=== PATIENT | male | born 1965 | race Caucasian/White ===

== ENCOUNTER 2019-05-31 10:02 | Inpatient (IN) ==
[2019-05-31] MEDS ORDERED: SODIUM CHLORIDE 0.9% 1000ML 1,000 ML IV ONE (10:28)
--- NOTE | 2019-05-31 10:29 | Emergency Department Note ---
Impression & Plan Bilateral pulmonary embolism, Hypertension, Embolism, pulmonary with infarction ED Provider Note NAME: DIA KRUGER AGE: 54 SEX: M : 1965 ARRIVES VIA: Walk-In INFORMANT: Patient ED PROVIDER(S): Stephan Cosby DO CHIEF COMPLAINT: Right mid abdomen pain HPI: Patient is a 54-year-old male who presents the ER for right mid to lower quadrant abdominal pain. This is been present since this past Monday. Came on gradually and has gradually worsened. He notes that it is focal to the right lower and may be radiates to the right mid abdomen. He denies any previous abdominal surgeries. No dysuria urgency or frequency. No hematuria. Last bowel movement was today and was unremarkable. He notes that twisting turning and bending breathing and bumps in the car do make it worse. Rest improves the pain. Does describe it as sharp as well. Denies any chest pain or shortness of breath. ROS: See above HPI for pertinent positives & negatives. A total of 10 systems reviewed and were otherwise negative. PAST MEDICAL HISTORY:none PAST SURGICAL HISTORY:none FAMILY HISTORY:See Below SOCIAL HISTORY:Denies smoking. Intermittent alcohol use HOME MEDICATIONS:See Below ALLERGIES:See Below VITALS:See Below PHYSICAL EXAMINATION: GENERAL: Sitting up in bed, alert, well appearing, well nourished, no distress, non-toxic EYE EXAM: normal conjunctiva. OROPHARYNX: no exudate, no erythema, lips, buccal mucosa, and tongue normal and mucous membranes are moist NECK: supple, no nuchal rigidity, no adenopathy, non-tender LUNGS: Clear to auscultation. Normal chest wall mechanics HEART: no murmurs, S1 normal and S2 normal ABDOMEN: abdomen soft, faint tenderness in right mid abdomen, normo-active bowel sounds, no masses, no rebound or guarding. BACK: Back is symmetrical on inspection and there is no deformity, no midline tenderness, no CVA tenderness. SKIN: no rashes and no bruising UPPER EXTREMITIES: upper extremities are grossly normal. LOWER EXTREMITIES: No pitting edema. NEURO EXAM: Normal sensorium, cranial nerves II-XII grossly intact, normal speech, no gross weakness of arms, no gross weakness of legs. MEDICAL DECISION MAKING: Patient is a 54-year-old male who presents the ER for right mid abdominal pain w hich is been present since this past Monday. Pain is worsened with twisting turning bending and breathing. Denies any chest pain or shortness of breath. No nausea vomiting or diarrhea. IV was established blood work was obtained. Labs show no significant leukocytosis or anemia. INR unremarkable. BMP with a slightly elevated chloride. LFTs bilirubin and troponin was negative. Lipase unremarkable. UA was negative. CT abdomen pelvis was performed and showed questionable bilateral PEs with pulmonary infarct. Duplex of lower extremities was then performed in order to refrain from performing a CT Duyen of the chest and giving him to dye loads. Duplex of lower extremities was negative. CT angios the chest was then performed to confirm the bilateral PEs. This showed bilateral PEs with pulmonary infarct. Patient was already given IV fluids. He denies any history of hemoptysis, hematemesis, hematuria, melena or bright red blood per rectum. No previous brain bleeds, recent trauma for recent surgeries. Discussed heparin drip and bolus. Patient was given a heparin drip and bolus. Discussed with the hospitalist. EKG was nondiagnostic. Patient was admitted for further work-up. Triage Nursing notes reviewed. Prior medical records reviewed Vital Signs: reviewed and remarkable for hypertension and tachycardia Differential diagnosis: Differential diagnoses includes but is not limited to gastritis, peptic ulcer disease, GERD, gallbladder disease, pancreatitis, small bowel obstruction, acute coronary syndrome, pericarditis, ischemic bowel, irritable bowel disease, irritable bowel syndrome, appendicitis, diverticulitis, malignancy, hernia, urinary tract infection, torsion, /ectopic (if female), p erforation, trauma, infectious. ER treatment provided: See below Diagnostics interpreted by me: ECG: Sinus rhythm rate 87 Poor baseline Normal axis No PVCs Normal QTC Questionable nonspecific ST wave changes in aVL Cardiac Monitoring: An order was placed for continuous cardiac monitoring. The monitor shows a rate of 98 with sinus rhythm. Laboratory studies: As stated above and show below. Imaging studies: Duplex of the lower extremities was unremarkable. CT abdomen pelvis concern for bilateral PEs with pulmonary infarct. CT Angio of the chest shows bilateral PEs with pulmonary infarct. Consultation(s): Discussed with Belia maxwell from the [facility] hospitalist team. ED COURSE: Procedures: None Critical Care: I have personally spent 35 minutes of critical care time in the direct management of this patient. This includes bedside care, interpretation of diagnostic studies, and testing, discussion with consultants, patient, and family members, and other required patient management activities. This 35 minutes is in excess of all separately billable procedures. Past Med/Surg History Medical History DM type 2 (diabetes mellitus, type 2) Dyslipidemia GERD (gastroesophageal reflux disease) Hypertension MARYLU on CPAP Surgical History No pertinent past surgical history Family History Father Pulmonary embolism Stroke Mother Breast cancer Social History Preferred Language: [place] [employer]icking [employer] Supervisor Required: No Beliefs That Will Affect Care: Uatsdin Uatsdin Beliefs: No blood products Current Living Situation: Spouse Other Information That Helps Us Care for You: No Feels Safe at Home: Yes Smoking Status: Never smoker Second Hand Exposure: Yes ; Hx Alcohol Use: Yes Alcohol type: beer and wine Alcohol Intake Frequency: Rarely Hx Substance Use: No Allergies Allergies Allergy/AdvReac Type Severity Reaction Status Date / Time No Known Allergies Allergy Unverified 05/31/19 11:11 Home Meds Home Medications Medication Instructions Recorded Confirmed aspirin 81 mg PO QAM 05/31/19 05/31/19 atorvastatin 40 mg PO QAM 05/31/19 05/31/19 cetirizine 10 mg PO DAILY PRN 05/31/19 05/31/19 losartan 50 mg PO QAM 05/31/19 05/31/19 metformin 500 mg PO QAM 05/31/19 05/31/19 omeprazole 20 mg PO QAM 05/31/19 05/31/19 Results & Data (ED) Vital Signs Vital Signs - 24 hr 05/31/19 10:08 05/31/19 11:28 05/31/19 13:24 Temperature 37.3 C Temperature Source Oral Pulse Rate 101 H Pulse Rate [Finger] 86 86 Respiratory Rate 20 17 17 Respiratory Effort / Characteristics Non-Labored Spontaneous Respiratory Depth Normal Respiratory Pattern Regular Blood Pressure 152/84 H Blood Pressure [Right Arm] 158/85 H 150/92 H Blood Pressure Mean 106 Blood Pressure Mean [Right Arm] 109 111 Pulse Oximetry 95 100 99 Oxygen Delivery Method Room Air Room Air Room Air Sepsis Recent Fever Within 48 Hours No Sepsis Action Taken by Nursing No Action Required Laboratory Data Result diagrams: 05/31/19 10:40 05/31/19 10:40 Lab Results 05/31/19 05/31/19 05/31/19 Range/Units 10:40 10:40 10:40 WBC 9.80 (4.8-10.8) K/uL RBC 5.06 (4.7-6.1) M/uL Hgb 13.9 L (14.0-18.0) g/dL Hct 42.1 (42-52) % MCV 83.2 (80-100) fL MCH 27.5 (25-34) pg MCHC 33.0 (32-36) g/dL RDW Std Deviation 40.4 (36.4-46.3) fL RDW Coeff of Dale 13.5 (11.5-14.5) % Plt Count 238 (130-400) K/uL MPV 8.8 (7.4-10.4) fL Immature Gran % (Auto) 0.1 % Neut % (Auto) 71.2 % Lymph % (Auto) 17.3 % [place] % (Auto) 8.6 % Eos % (Auto) 2.6 % Baso % (Auto) 0.2 % Immature Gran # (Auto) 0.01 (0.00-0.02) K/uL Neut # (Auto) 6.98 H (1.4-6.5) K/uL Lymph # (Auto) 1.70 (1.2-3.4) K/uL Berks # (Auto) 0.84 H (0.11-0.59) K/uL Eos # (Auto) 0.25 (0-0.5) K/uL Baso # (Auto) 0.02 (0-0.2) K/uL Sodium 137 (136-145) mmol/L Potassium 3.9 (3.5-5.1) mmol/L Chloride 108 H (98-107) mmol/L Carbon Dioxide 24 (21-32) mmol/L Anion Gap 5.0 (3-11) BUN 13 (7-18) mg/dl Creatinine 0.86 (0.6-1.4) mg/dl Est Cr Clr Drug Dosing 114.6 ml/min Est GFR ( Amer) 113.9 Est GFR (Non-Af Amer) 98.3 BUN/Creatinine Ratio 14.7 (10-20) Glucose 107 H (70-99) mg/dl Calcium 9.3 (8.5-10.1) mg/dl Total Bilirubin 0.4 (0.2-1) mg/dl AST 26 (15-37) U/L ALT 49 (12-78) U/L Alkaline Phosphatase 109 (45-117) U/L Troponin I (0-0.045) ng/ml Total Protein 8.1 (6.4-8.2) gm/dl Albumin 3.8 (3.4-5.0) gm/dl Globulin 4.3 H (2.5-4.0) gm/dl Albumin/Globulin Ratio 0.9 (0.9-2) Lipase 167 (73-393) U/L Urine Color Yellow Urine Appearance Clear (Clear) Urine pH 5.5 (4.5-7.5) Ur Specific [place] 1.018 (1.000-1.030) Urine Protein Negative (Negative) Urine Glucose (UA) Negative (Negative) Urine Ketones Negative (Negative) Urine Blood Negative (Negative) Urine Nitrite Negative (Negative) Urine Bilirubin Negative (Negative) Urine Urobilinogen Negative (Negative) Ur Leukocyte Esterase Negative (Negative) 05/31/19 Range/Units 10:40 WBC (4.8-10.8) K/uL RBC (4.7-6.1) M/uL Hgb (14.0-18.0) g/dL Hct (42-52) % MCV (80-100) fL MCH (25-34) pg MCHC (32-36) g/dL RDW Std Deviation (36.4-46.3) fL RDW Coeff of Dale (11.5-14.5) % Plt Count (130-400) K/uL MPV (7.4-10.4) fL Immature Gran % (Auto) % Neut % (Auto) % Lymph % (Auto) % [place] % (Auto) % Eos % (Auto) % Baso % (Auto) % Immature Gran # (Auto) (0.00-0.02) K/uL Neut # (Auto) (1.4-6.5) K/uL Lymph # (Auto) (1.2-3.4) K/uL [place] # (Auto) (0.11-0.59) K/uL Eos # (Auto) (0-0.5) K/uL Baso # (Auto) (0-0.2) K/uL Sodium (136-145) mmol/L Potassium (3.5-5.1) mmol/L Chloride (98-107) mmol/L Carbon Dioxide (21-32) mmol/L Anion Gap (3-11) BUN (7-18) mg/dl Creatinine (0.6-1.4) mg/dl Est Cr Clr Drug Dosing ml/min Est GFR ( Amer) Est GFR (Non-Af Amer) BUN/Creatinine Ratio (10-20) Glucose (70-99) mg/dl Calcium (8.5-10.1) mg/dl Total Bilirubin (0.2-1) mg/dl AST (15-37) U/L ALT (12-78) U/L Alkaline Phosphatase (45-117) U/L Troponin I < 0.015 (0-0.045) ng/ml Total Protein (6.4-8.2) gm/dl Albumin (3.4-5.0) gm/dl Globulin (2.5-4.0) gm/dl Albumin/Globulin Ratio (0.9-2) Lipase (73-393) U/L Urine Color Urine Appearance (Clear) Urine pH (4.5-7.5) Ur Specific [place] (1.000-1.030) Urine Protein (Negative) Urine Glucose (UA) (Negative) Urine Ketones (Negative) Urine Blood (Negative) Urine Nitrite (Negative) Urine Bilirubin (Negative) Urine Urobilinogen (Negative) Ur Leukocyte Esterase (Negative) Administered Medications Heparin Sodium/Dextrose (Heparin Sodium/Dextrose) 25,000 units in 500 mls @ 0.02 mls/hr IV .Q24H [facility]; Protocol Stop: 06/30/19 13:44 Last Admin: 05/31/19 15:35 Dose: 1,000 units/hr, 20 mls/hr Documented by: [id number] Cosigned by: [id number] Discontinued Medications Sodium Chloride (Nss 1000ml) 1,000 mls @ 999 mls/hr IV .Q1H1M ONE Stop: 05/31/19 11:28 Last Infusion: 05/31/19 11:48 Dose: 0 mls/hr Documented by: [id number] Admin: 05/31/19 10:41 Dose: 999 mls/hr Documented by: [id number] Ioversol (Optiray 320 100ml) 94 ml IV ONCE PRN PRN Reason: Interaction Checking Stop: 06/04/19 11:20 Last Admin: 05/31/19 11:22 Dose: 94 ml Documented by: [id number] Ioversol (Optiray 320 125ml) 95 ml IV ONCE PRN PRN Reason: Interaction Checking Stop: 06/04/19 13:23 Last Admin: 05/31/19 13:25 Dose: 95 ml Documented by: [id number] Morphine Sulfate (Morphine Sulfate) 4 mg IV NOW STA Stop: 05/31/19 13:26 Last Admin: 05/31/19 13:31 Dose: 4 mg Documented by: [id number] Ondansetron HCl (Zofran) 4 mg IV NOW STA Stop: 05/31/19 13:26 Last Admin: 05/31/19 13:31 Dose: 4 mg Documented by: [id number] Discharge Plan Visit Data *Final* Discharge Date/Time: 05/31/19 14:15 Chief Complaint: Abdominal Pain Stated Complaint: ABD PAIN, RLQ ED Provider: Stephan Cosby Discharge Problem: Bilateral pulmonary embolism, Hypertension, Embolism, pulmonary with infarction Patient Disposition: Admitted As Inpatient Discharge Instructions Interventions: ED Discharge Assessment Last Done: 05/31/19 14:15 Discharge Problem: Hypertension Qualifiers: Hypertension type: unspecified Qualified Code(s): I10 - Essential (primary) hypertension
[2019-05-31 10:47] LABS: Basophils # (auto) 0.02 K/uL (0-0.2); Basophils % (auto) 0.2 %; Eosinophils # (auto) 0.25 K/uL (0-0.5); Eosinophils % (auto) 2.6 %; Hematocrit (blood only) 42.1 % (42-52); Hemoglobin 13.9 g/dL (14.0-18.0); Immature Granulocytes # (auto) 0.01 K/uL (0.00-0.02); Immature Granulocytes % (auto) 0.1 %; Lymphocytes % (auto) 17.3 %; Mean Corpuscular Hemoglobin 27.5 pg (25-34); Mean Corpuscular Volume 83.2 fL (80-100); Mean Platelet Volume 8.8 fL (7.4-10.4); Monocytes # (auto) 0.84 K/uL (0.11-0.59); Monocytes % (auto) 8.6 %; Neutrophils # (auto) 6.98 K/uL (1.4-6.5); Neutrophils % (auto) 71.2 %; Platelet Count 238 K/uL (130-400); RDW Coefficient of Variation 13.5 % (11.5-14.5); RDW Standard Deviation 40.4 fL (36.4-46.3); Red Blood Count 5.06 M/uL (4.7-6.1)
--- NOTE | 2019-05-31 10:51 | XRay Report ---
XR chest 1V portable CLINICAL HISTORY: pain in abd with breathing COMPARISON STUDY: No previous studies for comparison. FINDINGS: Lung volumes are normal. Linear left lung opacities favor atelectasis or scarring. There is no pneumothorax or pleural effusion. Cardiac size is normal. Mediastinal contours are normal. There is no evidence for pulmonary edema. Old left-sided rib fractures are noted. IMPRESSION: No acute cardiopulmonary findings. ACT 112: Negative or not required by law. Electronically signed by: Boris Burnette M.D. 05/31/2019 10:50 AM
[2019-05-31 11:00] LABS: Appearance Urine Clear (Clear); Bilirubin Urine Negative (Negative); Blood Urine Negative (Negative); Color Urine Yellow; Glucose Urine UA Negative (Negative); Ketones Urine Negative (Negative); Leukocyte Esterase Urine Negative (Negative); Nitrite Urine Negative (Negative); Protein Urine Negative (Negative); Specific Gravity Urine 1.018 (1.000-1.030); Urobilinogen Urine Negative (Negative); pH Urine 5.5 (4.5-7.5)
[2019-05-31 11:05] LABS: Albumin Level 3.8 gm/dl (3.4-5.0); BUN Creatinine Ratio 14.7 (10-20); Calcium 9.3 mg/dl (8.5-10.1); Creatinine Clr Calc Pharmacy 114.6 ml/min; Est GFR (African American) 113.9; Est GFR (Non-African American) 98.3; Potassium 3.9 mmol/L (3.5-5.1)
[2019-05-31 11:08] LABS: Albumin Globulin Ratio 0.9 (0.9-2); Bilirubin,Total 0.4 mg/dl (0.2-1); Globulin 4.3 gm/dl (2.5-4.0); Total Protein 8.1 gm/dl (6.4-8.2)
[2019-05-31] MEDS ORDERED: IOVERSOL 100ml IV PRN (11:21)
--- NOTE | 2019-05-31 11:47 | CT Scan Report ---
CT OF THE ABDOMEN AND PELVIS WITH CONTRAST CLINICAL HISTORY: Right mid abdominal pain. COMPARISON STUDY: None. TECHNIQUE: Following IV administration of 94 mL of Optiray-320, axial images of the abdomen and pelvi s were obtained from the lung bases to the proximal femurs. Images were reviewed in the axial, sagitt al, and coronal planes. IV contrast was administered without complication. Automated exposure contro l was utilized for the study. A dose lowering technique was utilized adhering to the principles of A ANDREINA. CT DOSE: 733.26 mGy.cm FINDINGS: A trace right pleural effusion is noted. Linear bilateral lower lung opacities reflect atel ectasis. Ground glass opacity within the posterior basilar segment of the right lower lobe favors a p ulmonary infarct. There are probable bilateral lower lobe pulmonary emboli, larger on the right. No p neumatosis, free air or portal venous gas is present. There is no biliary or pancreatic ductal dilata tion. The spleen, adrenal glands, kidneys and pancreas are normal. A lipoma within the left lateral l ower chest wall is noted. There is no evidence for a bowel obstruction. The appendix is normal. Calib er and wall thickness of small and large bowel are normal. There is no lymphadenopathy or ascites. Th ere are no suspicious osseous lesions. IMPRESSION: 1. Probable bilateral lower lobe pulmonary emboli with a right lower lobe pulmonary infarct. A CT of the chest PE protocol is recommended for confirmation. 2. No acute process within the abdomen or pelvis. ACT 112: Negative or not required by law. Electronically signed by: Boris Burnette M.D. 05/31/2019 11:46 AM
--- NOTE | 2019-05-31 12:59 | Ultrasound Report ---
US venous doppler LE CLINICAL HISTORY: 54 years-old Male presenting with atypical chest pain, pleuritic pain, PEs. TECHNIQUE: Real-time grayscale and color and spectral Doppler ultrasound imaging of the veins of the bilateral lower extremities was performed. Compression and augmentation were also utilized. COMPARISON: None. FINDINGS: RIGHT: Common femoral vein: Patent. Greater saphenous vein (superficial): Patent. Deep femoral vein: Patent. Femoral vein: Patent. Popliteal vein: Patent. Calf veins: Patent. LEFT: Common femoral vein: Patent. Greater saphenous vein (superficial): Patent. Deep femoral vein: Patent. Femoral vein: Patent. Popliteal vein: Patent. Calf veins: Patent. Other: None. IMPRESSION: No evidence of deep venous thrombosis. ACT 112: Negative or not required by law. Electronically signed by: Gama Rolle M.D. 05/31/2019 12:58 PM
[2019-05-31] MEDS ORDERED: OPTIRAY 320 125ml IV PRN (13:24)
[2019-05-31] MEDS ORDERED: ONDANSETRON INJ 2 MG/ML 2 ML VIAL IV STA (13:25)
[2019-05-31] MEDS ORDERED: MoRPHine SULFATE 4 MG/ML 1 ML CARP\\VIAL IV STA (13:25)
--- NOTE | 2019-05-31 13:36 | CT Scan Report ---
CT angio chest PE protocol CLINICAL HISTORY: 54 years-old Male presenting with probable pulmonary emboli on CT of abdomen and pe lvis performed earlier the same day. TECHNIQUE: Multidetector CT angiography of the chest was performed after administration of intravenou s contrast. 3-D volumetric and/or maximum intensity projection (MIP) images were subsequently reconst ructed for review. IV contrast: 95 mL of Optiray 320. One or more dose lowering techniques were used consistent with the principles of ALARA (as low as reasonably achievable), including automatic exposu re control, mA or kV adjustment to individual patient size, and/or use of iterative reconstruction. COMPARISON: CT of abdomen and pelvis from earlier the same day. CT DOSE (mGy.cm): The estimated cumulative dose is 519.61 mGy.cm. 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 Pulmonary vasculature: The study is suboptimal for the assessment of the pulmonary vascular tree secondary to timing of the contrast bolus. Filling defects within segmental and subsegmental pulmonary emboli of the right lower lobe. More limited subsegmental filling defects consistent with pulmonary emboli in the left lower l obe and left upper lobe. No central pulmonary embolus. Main pulmonary artery is not enlarged. No flat tening of the interventricular septum. No intracardiac filling defect. No reflux of contrast into the hepatic veins. Remaining chest: Soft tissues: Normal thyroid and thoracic inlet. Gynecomastia. No axillary, supraclavicular, mediasti nal, or hilar lymphadenopathy. Normal aorta. Borderline enlargement of the heart. No pericardial or p leural effusion. Small sliding-type hiatal hernia. Lungs and airways: No pneumothorax. Central airways patent. Pulmonary arteries are not significantly enlarged relative to adjacent bronchi. No interlobular septal thickening. Extensive dependent bandlik e and subpleural consolidation with volume loss, likely atelectasis. Additionally, groundglass opacit ies in the posterior basal right lower lobe in a subpleural predominant distribution. Scattered calci fied granulomata. Musculoskeletal: Degenerative changes of the spine. IMPRESSION: 1. Segmental and subsegmental acute pulmonary emboli most prominently in the right lower lobe though also affecting the left upper and lower lobes. No CT evidence of right heart strain. 2. Groundglass infiltrate in the posterior basal right lower lobe raises concern for developing pulm onary infarct or pulmonary hemorrhage. 3. Borderline cardiomegaly. The report will be called/faxed according to standard departmental protocol for a critical finding. ACT 112: Negative or not required by law. Electronically signed by: Gama Rolle M.D. 05/31/2019 1:35 PM
[2019-05-31 14:23] LABS: INR 1.1 (0.9-1.1); Prothrombin Time 11.1 Seconds (9.0-12.0)
[2019-05-31] MEDS ORDERED: CARBOHYDRATES FOR HYPOGLYCEMIA PO PRN (14:44)
[2019-05-31] MEDS ORDERED: DEXTROSE 50% 50 ML SYRINGE IV PRN (14:44)
[2019-05-31] MEDS ORDERED: GLUCOSE 40% GEL 15 GM TUBE PO PRN (14:44)
[2019-05-31] MEDS ORDERED: GLUCOSE 10 TABS/TUBE PO PRN (14:44)
[2019-05-31] MEDS ORDERED: GLUCAGON FOR INJ 1 MG VIAL SQ PRN (14:44)
--- NOTE | 2019-05-31 14:56 | History & Physical Report ---
Date of Service May 31, 2019 Assessment & Plan (1) Bilateral pulmonary embolism: -Admit to telemetry -Patient presenting from home with reports of RUQ/right lower rib cage pain that was worsened by deep breath. Patient also had associated shortness of breath. -In the ED, abdominal CT was performed that was negative for acute abdominal findings however suggested bilateral pulmonary embolism. CTA chest was obtained that showed bilateral segmental and subsegmental PE in the right lower lobe and left upper and lower lobes with associated pulmonary infarction in the right lower lobe. -BL LE venous Doppler negative for DVT -Patient is hemodynamically stable, saturating well on room air -Patient reports + family history of PE in his father. Patient also has been sedentary over the past several weeks due to being laid off work. -Started on heparin in the ED, will continue; pending insurance coverage, transition to NOAC vs. Coumadin -Echo to evaluate for right heart strain, cycle cardiac enzymes -Follow-up with hematology as an outpatient for hypercoagulable work-up -Noted patient is up-to-date on screening colonoscopy, performed in 2015; patient has no history of malignancy (2) DM type 2 (diabetes mellitus, type 2): -Hgb A1c 6.0 02/2019 -Hold oral agents and utilize NovoLog per protocol while hospitalized (3) Hypertension: -BP controlled, continue losartan (4) MARYLU on CPAP: -CPAP as per home settings (5) GERD (gastroesophageal reflux disease): -Continue PPI (6) Dyslipidemia: -Continue statin (7) DVT prophylaxis: -On IV heparin drip Admission and Anticipated Discharge Date Admission Date: May 31, 2019 History of Present Illness Chief Complaint: Right upper quadrant abdominal pain Primary Care Provider: Bijan Escoto DO 54-year-old male with PMH of DM type II, HTN, and other problems listed below who presents to the ED for evaluation of right upper quadrant abdominal pain. Patient reports his symptoms began a few days ago. Describes the pain is located in his right upper quadrant/lower right rib cage. Pain is been localized to this area without any radiation to the back. Pain has been progressively getting worse. Patient notes increased pain with deep breath and movement. Today, patient noted some exertional shortness of breath. Denies any shortness of breath at rest. Denies cough or sputum production. No other recent illnesses, fevers, chills. Denies nausea, vomiting, diarrhea. No chest pain. Denies lightheadedness, dizziness, diaphoresis, syncopal events. Patient reports he has been rather sedentary for the past several weeks due to being laid off from work. In the ED, patient is found to have segmental and subsegmental bilateral pulmonary embolism. Patient is hemodynamically stable and saturating well on room air. Labs are unremarkable. Patient was given IV morphine, IV Zofran, IVF, started on IV heparin drip. Allergies Allergy/AdvReac Type Severity Reaction Status Date / Time No Known Allergies Allergy Unverified 05/31/19 11:11 Home Medications Home Medications Medication Instructions Recorded Confirmed Type aspirin 81 mg PO QAM 05/31/19 05/31/19 History atorvastatin 40 mg PO QAM 05/31/19 05/31/19 History cetirizine 10 mg PO DAILY PRN 05/31/19 05/31/19 History losartan 50 mg PO QAM 05/31/19 05/31/19 History metformin 500 mg PO QAM 05/31/19 05/31/19 History omeprazole 20 mg PO QAM 05/31/19 05/31/19 History Past Med/Surg History Medical History DM type 2 (diabetes mellitus, type 2) Dyslipidemia GERD (gastroesophageal reflux disease) Hypertension MARYLU on CPAP Surgical History No pertinent past surgical history Family History Father Pulmonary embolism Stroke Mother Breast cancer Social History Preferred Language: Kiswahili Disc Pad Grinder Required: No Beliefs That Will Affect Care: Church Church Beliefs: No blood products Current Living Situation: Spouse Other Information That Helps Us Care for You: No Feels Safe at Home: Yes Smoking Status: Never smoker Second Hand Exposure: Yes ; Hx Alcohol Use: Yes Alcohol type: beer and wine Alcohol Intake Frequency: Rarely Hx Substance Use: No Review of Systems Review of Systems: ROS per HPI, all other systems reviewed and negative Physical Exam Constitutional: WD/WN, vitals as above Eyes: PERRL, conjunctivae normal, anicteric sclerae ENMT: external ear and nose normal, oropharynx normal Respiratory: normal respiratory effort; no respiratory distress Auscultation: + diminished lung sounds (Bilateral bases) Cardiovascular: Rate/Rhythm: regular rate and regular rhythm Vessels: normal peripheral pulses Extremities: no edema Gastrointestinal (Abdomen): normal bowel sounds, soft, nontender, no hepatosplenomegaly Musculoskeletal: no cyanosis or clubbing, extremities motor strength 5/5 Skin: no rashes, warm and dry Neurologic: PERRL, EOMI, accommodation nl, no face palsy, no dysarthria Psychiatric: A+Ox3, euthymic affect Results & Data Results & Data ([facility]) Vital Signs (Past 12 Hours) Vital Signs Temp Pulse Pulse Resp BP BP Pulse Ox 05/31/19 14:34 37.0 C 95 H 18 131/82 92 05/31/19 14:15 88 18 152/78 H 100 05/31/19 13:24 86 17 150/92 H 99 05/31/19 11:28 86 17 158/85 H 100 05/31/19 10:08 37.3 C 101 H 20 152/84 H 95 Laboratory Results Short CBC 05/31/19 Range/Units 10:40 WBC 9.80 (4.8-10.8) K/uL Hgb 13.9 L (14.0-18.0) g/dL Hct 42.1 (42-52) % Plt Count 238 (130-400) K/uL BMP 05/31/19 10:40 Sodium 137 Potassium 3.9 Chloride 108 H Carbon Dioxide 24 BUN 13 Creatinine 0.86 Glucose 107 H Calcium 9.3 Cardiac Enzymes 05/31/19 Range/Units 10:40 Troponin I < 0.015 (0-0.045) ng/ml Liver Function 05/31/19 Range/Units 10:40 Total Bilirubin 0.4 (0.2-1) mg/dl AST 26 (15-37) U/L ALT 49 (12-78) U/L Alkaline Phosphatase 109 (45-117) U/L Albumin 3.8 (3.4-5.0) gm/dl Urine 05/31/19 Range/Units 10:40 Urine Color Yellow Urine Appearance Clear (Clear) Urine pH 5.5 (4.5-7.5) Ur Specific [place] 1.018 (1.000-1.030) Urine Protein Negative (Negative) Urine Glucose (UA) Negative (Negative) Diagnostic Findings CTA CHEST IMPRESSION: 1. Segmental and subsegmental acute pulmonary emboli most prominently in the right lower lobe though also affecting the left upper and lower lobes. No CT evidence of right heart strain. 2. Groundglass infiltrate in the posterior basal right lower lobe raises concern for developing pulmonary infarct or pulmonary hemorrhage. 3. Borderline cardiomegaly. BL LE VENOUS DOPPLER IMPRESSION: No evidence of deep venous thrombosis. CXR IMPRESSION: No acute cardiopulmonary findings. CT ABD/PELVIS IMPRESSION: 1. Probable bilateral lower lobe pulmonary emboli with a right lower lobe pulmonary infarct. A CT of the chest PE protocol is recommended for confirmation. 2. No acute process within the abdomen or pelvis. Code Status & VTE Plan VTE Prophylaxis Plan VTE Prophylaxis will be ordered: Yes Supervising Physician Co-Signing Physician Notes Patient is a 54-year-old male with history of diabetes mellitus, hypertension, obstructive sleep apnea, dyslipidemia and other problems presents with history of right upper quadrant pain predominantly with breathing and movement, dyspnea on exertion. He denies any history of fever, cough, hemoptysis, recent travel, history of smoking, exposure to COVID patients, recent hospitalization. He also denies any history of clots in the past or bleeding issues. CTA of the chest is suggestive of bilateral pulmonary embolism predominantly in the right lower lobe. No evidence of right heart strain noted on CT. Also, groundglass infiltrate in the posterior basal right lower lobe is noted suggesting concern for pulmonary infarct or pulmonary hemorrhage. Venous Dopplers is negative for DVT. Discussed CT findings with secondary education professor Dr. Tang complaint investigations officer. On exam patient is moderately built and nourished, no apparent distress, normocephalic atraumatic, lungs are clear to auscultation, decreased breath sounds, S1-S2, no murmur, abdomen is soft, right upper quadrant mild tenderness, bowel sounds are present, alert, awake, oriented, grossly no focal neurological deficits, no pedal edema. Patient is admitted for management of acute pulmonary embolism. He started on IV heparin. He is saturating well on room air. Plan to transition him to oral anticoagulants. Echo currently pending. Patient will need outpatient follow-up with oncology for further evaluation of hypercoagulability. I personally reviewed the record. Patient is interviewed and examined at bedside. Patient's care is coordinated with Belia Sales NP. Please refer to the documentation above for details of patient's presentation and for discussion of other issues.
--- NOTE | 2019-05-31 15:30 | Electrocardiogram Report ---
Test Reason : Blood Pressure : / mmHG Vent. Rate : 087 BPM Atrial Rate : 087 BPM P-R Int : 198 ms QRS Dur : 104 ms QT Int : 386 ms P-R-T Axes : 065 074 071 degrees QTc Int : 464 ms Normal sinus rhythm No previous ECGs available Confirmed by Shawn Randall ([id number]) on 05/31/2019 3:30:20 PM Referred By: REFERRED SELF Confirmed By:Samy Randall
[2019-05-31] MEDS: HEPARIN SODIUM/DEXTROSE 25,000 UNITS/500 ML BAG IV SCH (15:35)
[2019-05-31] MEDS ORDERED: HEPARIN IV BOLUS 7,000 UNITS in SYRINGE 0 ML IV ONE (16:30)
[2019-05-31] MEDS: MoRPHine SULFATE 4 MG/ML 1 ML CARP\\VIAL IV PRN ×2 (16:31→23:28)
[2019-05-31] MEDS: INSULIN ASPART 100 UNITS/ML 3 ML PEN SC SCH ×2 (17:38→20:25)
[2019-05-31] MEDS: LOSARTAN POTASSIUM 50 MG TAB PO SCH (17:42)
[2019-05-31] MEDS: ACETAMINOPHEN 325 MG TAB PO PRN (19:37)
--- NOTE | 2019-05-31 20:20 | XCELERA ---
[id number]
[2019-05-31 23:08] LABS: Partial Thromboplastin Ratio 2.5
[2019-05-31 23:13] LABS: Partial Thromboplastin Time 68.8 Seconds (21.0-31.0)
[2019-06-01] MEDS: ACETAMINOPHEN 325 MG TAB PO PRN ×2 (01:55→07:41)
[2019-06-01 05:40] LABS: Hematocrit (blood only) 38.5 % (42-52); Hemoglobin 12.5 g/dL (14.0-18.0); Mean Corpuscular Hemoglobin 27.4 pg (25-34); Mean Corpuscular Hgb Conc 32.5 g/dL (32-36); Mean Corpuscular Volume 84.2 fL (80-100); Mean Platelet Volume 8.6 fL (7.4-10.4); Platelet Count 232 K/uL (130-400); RDW Coefficient of Variation 13.7 % (11.5-14.5); RDW Standard Deviation 41.9 fL (36.4-46.3); Red Blood Count 4.57 M/uL (4.7-6.1); White Blood Count 10.43 K/uL (4.8-10.8)
[2019-06-01] MEDS: MoRPHine SULFATE 4 MG/ML 1 ML CARP\\VIAL IV PRN (05:48)
[2019-06-01 05:56] LABS: Partial Thromboplastin Time 54.5 Seconds (21.0-31.0)
[2019-06-01 06:02] LABS: BUN Creatinine Ratio 12.3 (10-20); Calcium 8.8 mg/dl (8.5-10.1); Creatinine Clr Calc Pharmacy 103.8 ml/min; Est GFR (African American) 104.8; Est GFR (Non-African American) 90.4; Potassium 3.8 mmol/L (3.5-5.1)
[2019-06-01] MEDS: LOSARTAN POTASSIUM 50 MG TAB PO SCH (07:37)
[2019-06-01] MEDS: ASPIRIN 81 MG ECTAB PO SCH (07:38)
[2019-06-01] MEDS: ATORVASTATIN 40 MG TAB PO SCH (07:38)
[2019-06-01] MEDS: PANTOprazole 40 MG TAB PO SCH (07:38)
[2019-06-01] MEDS: HEPARIN SODIUM/DEXTROSE 25,000 UNITS/500 ML BAG IV SCH ×2 (08:26→19:17)
[2019-06-01] MEDS: INSULIN ASPART 100 UNITS/ML 3 ML PEN SC SCH ×4 (08:28→20:05)
--- NOTE | 2019-06-01 09:49 | XRay Report ---
XR chest 2V PA/lateral CLINICAL HISTORY: ? Pulmonary Hemorrhage COMPARISON STUDY: Chest radiograph and chest CT May 31, 2019. FINDINGS: A trace right pleural effusion is noted. There is no pneumothorax. Linear left basilar opac ity favors atelectasis. Right basilar opacity has increased. Note is made of cardiomegaly without helen dence for pulmonary edema. Incidental note is made of multiple old left rib fractures. IMPRESSION: 1. Increase in right basilar opacity which favors a pulmonary infarct when correlating with prior [facility] st CT. Trace right pleural effusion. 2. Left basilar opacity which favors atelectasis. ACT 112: Negative or not required by law. Electronically signed by: Boris Burnette M.D. 06/01/2019 9:48 AM
--- NOTE | 2019-06-01 12:01 | Hospitalist Progress Note ---
Date of Service June 01, 2019 Assessment & Plan (1) Bilateral pulmonary embolism: Acute Bilateral PE Pulmonary Infarct --CTA:Segmental and subsegmental acute pulmonary emboli most prominently in the right lower lobe though also affecting the left upper and lower lobes. No CT evidence of right heart strain. Groundglass infiltrate in the posterior basal right lower lobe raises concern for developing pulmonary infarct or pulmonary hemorrhage. Borderline cardiomegaly. --Venous Doppler:No evidence of deep venous thrombosis. --ECHO: The left ventricular wall motion is normal. Ejection fraction 55 to 60%. Right ventricle is normal in size and function. Grade 1 diastolic dysfunction. Doppler findings do not suggest pulmonary hypertension. The right pulmonary systolic pressure estimated to be 25 mmHg. --Needs hypercoagulable work up as outpatient --Discussed with Pulmonology on 05/31/19 --Supplemental Oxygen as needed --Continue IV Heparin for now --Continue pain control --Consider Pulmonology eval if needed --Plan to discharge him on Eliquis when able --Monitor CBC Atelectasis Continue Incentive Spirometry (2) DM type 2 (diabetes mellitus, type 2): Hgb A1c 6.0 02/2019 Hold oral agents Continue NovoLog per protocol while hospitalized (3) Hypertension: BP Stable Continue losartan (4) MARYLU on CPAP: CPAP as per home settings Qhs (5) GERD (gastroesophageal reflux disease): Continue Protonix (6) Dyslipidemia: Continue statin (7) DVT prophylaxis: On IV heparin ggt Disposition: Expect to discharge home when stable Admission and Anticipated Discharge Date Admission Date: May 31, 2019 Subjective Patient is seen and examined at bedside Complains of right sided pleuritic pain especially with breathing/movement Still has dyspnea Denies any nausea, dizziness,cough, hemoptysis Saturating low 90s on room air CXR today showed increasing right basilar opacity; trace right pleural effusion and left basilar opacity which favors atelectasis. Review of Systems Review of Systems: All systems reviewed & are unremarkable except as noted in HPI & below Physical Exam Physical Exam: Physical Exam: Vitals signs as noted above General Appearance:Moderately built and nourished, no apparent distress Head: normocephalic, Atraumatic Eyes: normal inspection, EOMI Neck: supple, Trachea midline Respiratory/Chest: Decreased breath sounds at bases, CTA, chest wall tender on right lower Cardiovascular: S1, S2, No murmur Abdomen/GI:Soft, Non tender, Bowel sounds present Extremities/Musculoskelatal:normal inspection, no edema Neurologic/Psych:AAOX3, grossly no focal neurological deficits Skin: normal color, warm Results & Data Results & Data ([facility]) Vital Signs (Past 12 Hours) Vital Signs Temp Pulse Resp BP Pulse Ox 06/01/19 11:22 36.7 C 96 H 18 133/81 92 06/01/19 07:17 36.9 C 83 18 157/78 H 92 06/01/19 03:42 36.9 C 86 18 117/69 91 Laboratory Results Short CBC 06/01/19 Range/Units 05:20 WBC 10.43 (4.8-10.8) K/uL Hgb 12.5 L (14.0-18.0) g/dL Hct 38.5 L (42-52) % Plt Count 232 (130-400) K/uL BMP 06/01/19 05:20 Sodium 137 Potassium 3.8 Chloride 105 Carbon Dioxide 30 BUN 12 Creatinine 0.95 Glucose 125 H Calcium 8.8 Cardiac Enzymes 05/31/19 05/31/19 05/31/19 Range/Units 10:40 16:12 22:27 Troponin I < 0.015 < 0.015 < 0.015 (0-0.045) ng/ml (1) Hypertension Hypertension type: unspecified Qualified Code(s): I10 - Essential (primary) hypertension
[2019-06-01] MEDS: OXYCODONE/ACETAMINOPHEN 5mg/325mg TAB PO PRN ×2 (12:24→18:32)
[2019-06-01 14:07] LABS: Hemoglobin 12.6 g/dL (14.0-18.0)
[2019-06-01] MEDS: MoRPHine SULFATE 2 MG/ML CARP IV PRN (17:23)
[2019-06-02] MEDS: MoRPHine SULFATE 2 MG/ML CARP IV PRN ×2 (00:30→04:13)
[2019-06-02] MEDS: HEPARIN SODIUM/DEXTROSE 25,000 UNITS/500 ML BAG IV SCH ×2 (03:37→20:36)
[2019-06-02] MEDS: OXYCODONE/ACETAMINOPHEN 5mg/325mg TAB PO PRN (03:40)
[2019-06-02 05:48] LABS: Hematocrit (blood only) 36.1 % (42-52); Hemoglobin 11.8 g/dL (14.0-18.0); Mean Corpuscular Hemoglobin 27.7 pg (25-34); Mean Corpuscular Hgb Conc 32.7 g/dL (32-36); Mean Corpuscular Volume 84.7 fL (80-100); Mean Platelet Volume 8.4 fL (7.4-10.4); Platelet Count 222 K/uL (130-400); RDW Coefficient of Variation 13.7 % (11.5-14.5); RDW Standard Deviation 42.6 fL (36.4-46.3); Red Blood Count 4.26 M/uL (4.7-6.1); White Blood Count 9.02 K/uL (4.8-10.8)
[2019-06-02 06:13] LABS: BUN Creatinine Ratio 12.3 (10-20); Creatinine Clr Calc Pharmacy 108.5 ml/min; Est GFR (African American) 110.3; Est GFR (Non-African American) 95.2; Magnesium 2.3 mg/dl (1.8-2.4); Potassium 4.3 mmol/L (3.5-5.1)
[2019-06-02 06:14] LABS: Partial Thromboplastin Ratio 1.8
[2019-06-02 06:16] LABS: Partial Thromboplastin Time 49.3 Seconds (21.0-31.0)
[2019-06-02] MEDS: ASPIRIN 81 MG ECTAB PO SCH (07:17)
[2019-06-02] MEDS: ATORVASTATIN 40 MG TAB PO SCH (07:17)
[2019-06-02] MEDS: PANTOprazole 40 MG TAB PO SCH (07:18)
[2019-06-02] MEDS: LOSARTAN POTASSIUM 50 MG TAB PO SCH (07:18)
[2019-06-02] MEDS: INSULIN ASPART 100 UNITS/ML 3 ML PEN SC SCH ×4 (09:01→20:10)
--- NOTE | 2019-06-02 12:38 | Hospitalist Progress Note ---
Date of Service June 02, 2019 Assessment & Plan (1) Bilateral pulmonary embolism: Acute Bilateral PE Pulmonary Infarct --CTA:Segmental and subsegmental acute pulmonary emboli most prominently in the right lower lobe though also affecting the left upper and lower lobes. No CT evidence of right heart strain. Groundglass infiltrate in the posterior basal right lower lobe raises concern for developing pulmonary infarct or pulmonary hemorrhage. Borderline cardiomegaly. --Venous Doppler:No evidence of deep venous thrombosis. --ECHO: The left ventricular wall motion is normal. Ejection fraction 55 to 60%. Right ventricle is normal in size and function. Grade 1 diastolic dysfunction. Doppler findings do not suggest pulmonary hypertension. The right pulmonary systolic pressure estimated to be 25 mmHg. --Needs hypercoagulable work up as outpatient --Discussed with Pulmonology on 05/31/19 and 06/02/19 --Supplemental Oxygen as needed --Continue IV Heparin for now --Continue pain control --Consider Pulmonology eval if needed --Plan to discharge on Eliquis--patient agrees with the plan --Monitor CBC --Plan to discharge once pain is better controlled Atelectasis Continue Incentive Spirometry (2) DM type 2 (diabetes mellitus, type 2): Hgb A1c 6.0 02/2019 Hold oral agents Continue NovoLog per protocol while hospitalized (3) Hypertension: BP Stable Continue losartan (4) MARYLU on CPAP: CPAP as per home settings Qhs (5) GERD (gastroesophageal reflux disease): Continue Protonix (6) Dyslipidemia: Continue statin (7) DVT prophylaxis: On IV heparin ggt Disposition: Expect to discharge home when stable Admission and Anticipated Discharge Date Admission Date: May 31, 2019 Subjective Patient is seen and examined at bedside Still has pleuritic chest pain Requiring IV pain meds to control pain Dyspnea slightly better Discussed with pulmonology today Denies any nausea, dizziness,cough, hemoptysis Review of Systems Review of Systems: All systems reviewed & are unremarkable except as noted in HPI & below Physical Exam Physical Exam: Physical Exam: Vitals signs as noted above General Appearance:Moderately built and nourished, no apparent distress Head: normocephalic, Atraumatic Eyes: normal inspection, EOMI Neck: supple, Trachea midline Respiratory/Chest: Decreased breath sounds (Likely due to shallow breathing), CTA Cardiovascular: S1, S2, No murmur Abdomen/GI:Soft, Non tender, Bowel sounds present Extremities/Musculoskelatal:normal inspection, no edema Neurologic/Psych:AAOX3, grossly no focal neurological deficits Skin: normal color, warm Results & Data Results & Data ([facility]) Vital Signs (Past 12 Hours) Vital Signs Temp Pulse Pulse Resp BP Pulse Ox Pulse Ox 06/02/19 11:26 37.4 C 95 H 18 123/74 93 06/02/19 08:00 81 92 06/02/19 07:35 36.9 C 81 18 117/72 92 06/02/19 03:02 37.2 C 90 17 124/76 93 Laboratory Results Short CBC 06/01/19 06/02/19 Range/Units 13:53 05:38 WBC 9.02 (4.8-10.8) K/uL Hgb 12.6 L 11.8 L (14.0-18.0) g/dL Hct 39.0 L 36.1 L (42-52) % Plt Count 222 (130-400) K/uL BMP 06/02/19 05:38 Sodium 135 L Potassium 4.3 Chloride 102 Carbon Dioxide 30 BUN 11 Creatinine 0.91 Glucose 116 H Calcium 9.0 (1) Hypertension Hypertension type: unspecified Qualified Code(s): I10 - Essential (primary) hypertension
[2019-06-03 05:30] LABS: Hematocrit (blood only) 36.8 % (42-52); Hemoglobin 11.8 g/dL (14.0-18.0); Mean Corpuscular Hemoglobin 26.9 pg (25-34); Mean Corpuscular Hgb Conc 32.1 g/dL (32-36); Mean Corpuscular Volume 83.8 fL (80-100); Mean Platelet Volume 8.7 fL (7.4-10.4); Platelet Count 231 K/uL (130-400); RDW Coefficient of Variation 13.4 % (11.5-14.5); RDW Standard Deviation 41.4 fL (36.4-46.3); Red Blood Count 4.39 M/uL (4.7-6.1); White Blood Count 7.21 K/uL (4.8-10.8)
[2019-06-03 05:41] LABS: Partial Thromboplastin Ratio 1.3; Partial Thromboplastin Time 35.9 Seconds (21.0-31.0)
[2019-06-03 05:50] LABS: Calcium 9.1 mg/dl (8.5-10.1); Creatinine Clr Calc Pharmacy 98.5 ml/min; Est GFR (African American) 98.5; Est GFR (Non-African American) 84.9; Potassium 4.5 mmol/L (3.5-5.1)
[2019-06-03] MEDS ORDERED: HEPARIN IV BOLUS 7,000 UNITS in SYRINGE 0 ML IV STA (06:10)
--- NOTE | 2019-06-03 07:53 | XRay Report ---
XR chest 1V portable HISTORY: 54 years-old Male Pulmonary infarct follow-up study in a patient with pulmonary emboli and right lung base pulmonary infarct COMPARISON: Chest radiograph 06/01/2019, CTA chest 05/31/2019 TECHNIQUE: Portable AP view of the chest FINDINGS: Cardiomediastinal and hilar silhouettes appear unchanged. Blunting of the costophrenic angles with pr obable trace right pleural effusion. No overt pulmonary edema or pneumothorax. Linear predominant bib asilar opacities are redemonstrated, slightly worsened on the right. Degenerative changes of the shou lders and spine. IMPRESSION: 1. Right greater than left bibasilar opacities are redemonstrated, slightly progressed on the right s uggestive of atelectasis with possible right lower lobe pulmonary infarct. 2. Probable trace right pleural effusion. ACT 112: Negative or not required by law. The above report was generated using voice recognition software. It may contain grammatical, syntax o r spelling errors. Electronically signed by: Manolo Cardenas M.D. 06/03/2019 7:51 AM
[2019-06-03] MEDS: PANTOprazole 40 MG TAB PO SCH (08:17)
[2019-06-03] MEDS: ASPIRIN 81 MG ECTAB PO SCH (08:17)
[2019-06-03] MEDS: ATORVASTATIN 40 MG TAB PO SCH (08:17)
[2019-06-03] MEDS: LOSARTAN POTASSIUM 50 MG TAB PO SCH (08:17)
[2019-06-03] MEDS: INSULIN ASPART 100 UNITS/ML 3 ML PEN SC SCH ×2 (08:18→11:46)
[2019-06-03] MEDS ORDERED: APIXABAN 5 MG TABLET PO SCH (09:45)
--- NOTE | 2019-06-03 11:01 | Hospitalist Progress Note ---
Date of Service June 03, 2019 Assessment & Plan (1) Bilateral pulmonary embolism: Acute Bilateral PE Pulmonary Infarct --CTA:Segmental and subsegmental acute pulmonary emboli most prominently in the right lower lobe though also affecting the left upper and lower lobes. No CT evidence of right heart strain. Groundglass infiltrate in the posterior basal right lower lobe raises concern for developing pulmonary infarct or pulmonary hemorrhage. Borderline cardiomegaly. --Venous Doppler:No evidence of deep venous thrombosis. --ECHO: The left ventricular wall motion is normal. Ejection fraction 55 to 60%. Right ventricle is normal in size and function. Grade 1 diastolic dysfunction. Doppler findings do not suggest pulmonary hypertension. The right pulmonary systolic pressure estimated to be 25 mmHg. --Needs hypercoagulable work up as outpatient --Discussed with Pulmonology on 05/31/19 and 06/02/19 --Supplemental Oxygen as needed --IV Heparin discontinued --Started on Eliquis --Continue pain control --Monitor CBC Atelectasis Continue Incentive Spirometry (2) DM type 2 (diabetes mellitus, type 2): Hgb A1c 6.0 02/2019 Hold oral agents Continue NovoLog per protocol while hospitalized (3) Hypertension: BP Stable Continue losartan (4) MARYLU on CPAP: CPAP as per home settings Qhs (5) GERD (gastroesophageal reflux disease): Continue Protonix (6) Dyslipidemia: Continue statin (7) DVT prophylaxis: Eliquis Disposition: Expect to discharge home when stable Admission and Anticipated Discharge Date Admission Date: May 31, 2019 Subjective Patient is seen and examined at bedside States feeling much better today Pleuritic chest pain and dyspnea improved Denies any nausea, dizziness,cough, hemoptysis Offers no other complaints Review of Systems Review of Systems: All systems reviewed & are unremarkable except as noted in HPI & below Physical Exam Physical Exam: Physical Exam: Vitals signs as noted above General Appearance:Moderately built and nourished, no apparent distress Head: normocephalic, Atraumatic Eyes: normal inspection, EOMI Neck: supple, Trachea midline Respiratory/Chest: Decreased breath sounds, CTA Cardiovascular: S1, S2, No murmur Abdomen/GI:Soft, Non tender, Bowel sounds present Extremities/Musculoskelatal:normal inspection, no edema Neurologic/Psych:AAOX3, grossly no focal neurological deficits Skin: normal color, warm Results & Data Results & Data ([facility]) Vital Signs (Past 12 Hours) Vital Signs Temp Pulse Pulse Resp BP Pulse Ox 06/03/19 08:00 85 06/03/19 07:05 37.2 C 87 19 117/78 91 06/03/19 03:58 37.3 C 83 17 127/79 92 06/03/19 02:18 87 06/02/19 23:28 37.5 C 91 H 17 124/72 93 Laboratory Results Short CBC 06/03/19 Range/Units 05:20 WBC 7.21 (4.8-10.8) K/uL Hgb 11.8 L (14.0-18.0) g/dL Hct 36.8 L (42-52) % Plt Count 231 (130-400) K/uL BMP 06/03/19 05:20 Sodium 138 Potassium 4.5 Chloride 105 Carbon Dioxide 29 BUN 11 Creatinine 1.00 Glucose 118 H Calcium 9.1 (1) Hypertension Hypertension type: unspecified Qualified Code(s): I10 - Essential (primary) hypertension
--- NOTE | 2019-06-03 11:32 | Discharge Summary ---
Date of Service June 03, 2019 Admission HPI Per Admitting Provider 54-year-old male with PMH of DM type II, HTN, and other problems listed below who presents to the ED for evaluation of right upper quadrant abdominal pain. Patient reports his symptoms began a few days ago. Describes the pain is located in his right upper quadrant/lower right rib cage. Pain is been localized to this area without any radiation to the back. Pain has been progressively getting worse. Patient notes increased pain with deep breath and movement. Today, patient noted some exertional shortness of breath. Denies any shortness of breath at rest. Denies cough or sputum production. No other recent illnesses, fevers, chills. Denies nausea, vomiting, diarrhea. No chest pain. Denies lightheadedness, dizziness, diaphoresis, syncopal events. Patient reports he has been rather sedentary for the past several weeks due to being laid off from work. In the ED, patient is found to have segmental and subsegmental bilateral pulmonary embolism. Patient is hemodynamically stable and saturating well on room air. Labs are unremarkable. Patient was given IV morphine, IV Zofran, IVF, started on IV heparin drip. Admission Exam Per Admitting Provider Physical Exam Constitutional: WD/WN, vitals as above Eyes: PERRL, conjunctivae normal, anicteric sclerae ENMT: external ear and nose normal, oropharynx normal Respiratory: normal respiratory effort; no respiratory distress Auscultation: + diminished lung sounds (Bilateral bases) Cardiovascular: Rate/Rhythm: regular rate and regular rhythm Vessels: normal peripheral pulses Extremities: no edema Gastrointestinal (Abdomen): normal bowel sounds, soft, nontender, no hepatosplenomegaly Musculoskeletal: no cyanosis or clubbing, extremities motor strength 5/5 Skin: no rashes, warm and dry Neurologic: PERRL, EOMI, accommodation nl, no face palsy, no dysarthria Psychiatric: A+Ox3, euthymic affect Principal Diagnosis Acute Bilateral PE Pulmonary Infarct Discharge Data Allergies Allergy/AdvReac Type Severity Reaction Status Date / Time No Known Allergies Allergy Unverified 05/31/19 11:11 Consultations 05/31/19 13:52 ED Decision to Admit Stat 05/31/19 14:44 Consult Case Management - Discharge Planning Routine Procedures Performed --CTA:Segmental and subsegmental acute pulmonary emboli most prominently in the right lower lobe though also affecting the left upper and lower lobes. No CT evidence of right heart strain. Groundglass infiltrate in the posterior basal right lower lobe raises concern for developing pulmonary infarct or pulmonary hemorrhage. Borderline cardiomegaly. --Venous Doppler:No evidence of deep venous thrombosis. --ECHO: The left ventricular wall motion is normal. Ejection fraction 55 to 60%. Right ventricle is normal in size and function. Grade 1 diastolic dysfunction. Doppler findings do not suggest pulmonary hypertension. The right pulmonary systolic pressure estimated to be 25 mmHg. Ordered Studies 05/31/19 10:28 CT abd pelvis IV con only Stat 05/31/19 12:01 US venous doppler LE BI Stat 05/31/19 13:04 CT angio chest PE protocol Stat Hospital Course (1) Bilateral pulmonary embolism: Acute Bilateral PE Pulmonary Infarct --CTA:Segmental and subsegmental acute pulmonary emboli most prominently in the right lower lobe though also affecting the left upper and lower lobes. No CT evidence of right heart strain. Groundglass infiltrate in the posterior basal right lower lobe raises concern for developing pulmonary infarct or pulmonary hemorrhage. Borderline cardiomegaly. --Venous Doppler:No evidence of deep venous thrombosis. --ECHO: The left ventricular wall motion is normal. Ejection fraction 55 to 60%. Right ventricle is normal in size and function. Grade 1 diastolic dysfunction. Doppler findings do not suggest pulmonary hypertension. The right pulmonary systolic pressure estimated to be 25 mmHg. --Needs hypercoagulable work up as outpatient --Discussed with Pulmonology on 05/31/19 and 06/02/19 --Supplemental Oxygen as needed --IV Heparin discontinued --Started on Eliquis --Continue pain control --Monitor CBC Atelectasis Continue Incentive Spirometry (2) DM type 2 (diabetes mellitus, type 2): Hgb A1c 6.0 02/2019 Hold oral agents Continue NovoLog per protocol while hospitalized (3) Hypertension: BP Stable Continue losartan (4) MARYLU on CPAP: CPAP as per home settings Qhs (5) GERD (gastroesophageal reflux disease): Continue Protonix (6) Dyslipidemia: Continue statin (7) DVT prophylaxis: Eliquis Disposition: Expect to discharge home when stable Total Time Total Time Spent Total Time Spent (In Minutes): 38 minutes Total Time Includes: Examination of the Patient, Discharge Planning, Medication Reconciliation, Communication With Other Providers and Other Discharge Plan Discharge Items Patient Disposition: Home - Self-Care Reason For Visit: BL PE Discharge Diagnosis: Acute pulmonary embolism Activity: Per Instructions section Exercise/Sports: Wait until after follow-up appointment Non-emergency contact: Primary Care Provider and Oncologist Call non-emergency contact if: you have any medication questions, your symptoms worsen, your pain is not controlled, your pain is worsening, your pain is unusual for you, your pain is concerning for you and you have a fever Follow-up/Referrals: Bijan Esocto DO [Primary Care Provider] - 06/07/19 10:25 am Diet: Carb Consistent or DM2 and Heart Healthy Addtl Attending Provider Instructions: Follow up with your PCP /Jevon in 1 week as advised Follow up with your Oncologist for further work up to determine the reason for blood clots (Hypercoagulable work up and other screening tests as necessary) Consider following up with your Hand Rigger if needed Take Apixaban (Eliquis) 10mg twice a day from 06/03/19 to 06/09/19. Then start taking Apixaban 5mg twice a day from 06/10/19. Avoid taking nonsteroidal anti-inflammatory drugs like ibuprofen, ketorolac, diclofenac etc to minimize the risk for bleeding. Seek immediate medical attention if your symptoms reoccur or worsen Pending Studies at Discharge: No Stand-Alone Forms: My [facility], Smoking Cessation Medications and DC Order Prescriptions: New Eliquis 5 mg Tablet 10 mg PO UD Qty: 60 RF: 0 oxycodone-acetaminophen [Percocet] 5-325 mg Tablet 1 tab PO Q8H PRN (Reason: pain) Qty: 10 RF: 0 Continued losartan 50 mg tablet 50 mg PO QAM RF: 0 atorvastatin 40 mg tablet 40 mg PO QAM RF: 0 cetirizine 10 mg tablet 10 mg PO DAILY PRN (Reason: Allergy Symptoms) RF: 0 aspirin 81 mg Tablet,Delayed Release (Dr/Ec) 81 mg PO QAM RF: 0 omeprazole 20 mg capsule,delayed release(DR/EC) 20 mg PO QAM RF: 0 metformin 500 mg tablet extended release 24 hr 500 mg PO QAM RF: 0 Discharge Orders: Discharge Order (Routine); Ordered 06/03/19 Ordered By: Quoc Pena Admission Data Admit Date/Time: 05/31/19 13:53 Attending Provider: Quoc Pena Admit Provider: Quoc Pena Primary Care Provider: Bijan Escoto Other Providers: Quoc Pena Other Interventions: Discharge Summary Assessment (RN) Last Done: 06/03/19 12:06 DC Date/Time DO NOT enter until pt leaves facility: 06/03/19 13:32
[2019-06-03 12:29] LABS: Partial Thromboplastin Ratio 1.2; Partial Thromboplastin Time 34.4 Seconds (21.0-31.0)
[2019-06-10] MEDS ORDERED: APIXABAN 5 MG TABLET PO SCH (09:00)
== END 2019-06-03 13:32 | disposition home or self-care (01) | DRG 176 ==
LOC: ED 10:02 → 2S 13:53